=== PATIENT | male | born 1935 | race Caucasian/White ===

== ENCOUNTER 2017-01-08 11:26 | Inpatient (IN) | payer MEDICARE, MEDICAID ==
--- NOTE | 2017-01-08 13:04 | XRay Report ---
AP CHEST: HISTORY: chest pain AP view of the chest demonstrates a normal mediastinal and cardiac contour with clear lungs and normal bony and soft tissue structures. IMPRESSION: Unremarkable AP chest.
[2017-01-08 13:09] LABS: Basophils % (Auto) 1.2 % (0.0-1.8); Hemoglobin 14.2 gm/dl (11.8-15.2); Mean Corpuscular HGB Conc 34 % (32-34); Mean Corpuscular Hemoglobin 30 pg (28-32); Mean Corpuscular Volume 89 fl (84-94); Platelet Count 148 K/mm3 (140-440); Red Blood Count 4.72 M/mm3 (3.65-5.03); Red Cell Distribution Width 13.8 % (13.2-15.2); White Blood Count 6.1 K/mm3 (4.5-11.0)
--- NOTE | 2017-01-08 13:11 | Emergency Department Report ---
HPI - General Chief Complaint: Chest Pain Time Seen by Provider: 01/08/17 12:24 - HPI HPI: This is a 81-year-old male presents to the emergency department from [place] via EMS with complaint of some midsternal left-sided chest pain has been going on for the past to 3 days. He also complains of some constipation with hard stool. The patient says that he does not have any air-conditioning and has room will get up to about 95 and temperature. He also complains of some decreased oral intake due to a decreased appetite. He denies any significant medical history. He has not taken anything received anything for his symptoms prior to presentation. He does not have a primary care physician. He denies any tobacco or illicit drug use or abuse. ED Past Medical Hx - Past Medical History Previous Medical History?: No - Surgical History Past Surgical History?: No - Social History Smoking Status: Never Smoker ED Review of Systems ROS: Stated complaint: CHEST PAIN/CONSTIPATION/BLOOD IN STOOL Other details as noted in HPI Comment: All other systems reviewed and negative Constitutional: denies: chills, fever Eyes: denies: eye pain, eye discharge, vision change ENT: denies: ear pain, throat pain Respiratory: denies: cough, shortness of breath, wheezing Cardiovascular: chest pain. denies: palpitations Gastrointestinal: constipation. denies: abdominal pain Genitourinary: denies: urgency, dysuria Musculoskeletal: denies: back pain, joint swelling, arthralgia Skin: denies: rash, lesions Neurological: denies: headache, weakness, paresthesias Physical Exam - Physical Exam Vital Signs: Vital Signs 01/08/17 12:00 Pulse Rate 63 Respiratory 16 Rate Blood Pressure 134/68 O2 Sat by Pulse 100 Oximetry Physical Exam: GENERAL: The patient is well-developed well-nourished but disheveled appearance. ENT: Normocephalic. Atraumatic. Patient has moist mucous membranes. EYES: Extraocular motions are intact. Pupils equal reactive to light bilaterally. No nystagmus. NECK: Supple. Trachea is mid line. CHEST/LUNGS: Clear to auscultation. There is no respiratory distress noted. Chest pain is not reducible to palpation of the chest wall. HEART/CARDIOVASCULAR: Regular rhythm. Regular rate. There is no gallop rub or murmur. ABDOMEN: Abdomen is soft, nontender. Patient has normal bowel sounds. There is no abdominal distention. SKIN: Skin is warm and dry. NEURO: The patient is awake, alert, and oriented. The patient is cooperative. The patient has no sensory or motor deficits. The patient has normal speech. MUSCULOSKELETAL: There is no tenderness or deformity. There is no limitation range of motion. There is no evidence of acute injury. ED Course Vital Signs 01/08/17 12:00 Pulse Rate 63 Respiratory 16 Rate Blood Pressure 134/68 O2 Sat by Pulse 100 Oximetry ED Medical Decision Making - Lab Data Result diagrams: 01/08/17 12:50 01/08/17 12:50 - EKG Data -: EKG Interpreted by Me EKG shows normal: sinus rhythm, axis (LAD), intervals, QRS complexes, ST-T waves (T-wave inversions to the inferior and lateral leads) Rate: normal - EKG Data When compared to previous EKG there are: previous EKG unavailable Interpretation: other (sinus rhythm, left axis deviation, T-wave inversions inferior and lateral leads) 01/08/17 15:40 Repeat EKG was also read by myself and shows a sinus rhythm, borderline left axis deviation, Q waves to the septal leads and flattening of the T waves - Radiology Data Radiology results: image reviewed interpreted by me: Chest x-ray does not show any pleural effusion, obvious signs of pneumonia or any pneumothorax. No acute process noted. - Medical Decision Making 81-year-old male presents to the emergency department with some chest pain and concern for constipation. EKG does not show any signs of ST elevation NE. Negative d-dimer. First 2 troponins are negative. However the patient continues to have some chest discomfort and has not had a full cardiac workup. He will be admitted to the hospital for further evaluation and treatment has been accepted for admission by the hospitalist, Dr. Navarro. - Differential Diagnosis NE, PE, Costochondritis, Pneumonia Critical Care Time: No Critical care attestation.: If time is entered above; I have spent that time in minutes in the direct care of this critically ill patient, excluding procedure time. ED Disposition Clinical Impression: Chest pain, rule out acute myocardial infarction Chest pain Qualifiers: Chest pain type: unspecified Qualified Code(s): R07.9 - Chest pain, unspecified Constipation Qualifiers: Constipation type: unspecified constipation type Qualified Code(s): K59.00 - Constipation, unspecified Disposition: DC-09 OP ADMIT IP TO THIS HOSP Is pt being admited?: Yes Does the pt Need Aspirin: Yes Condition: Stable Time of Disposition: 16:08
[2017-01-08 13:22] LABS: Alanine Aminotransferase 6 units/L (7-56); Albumin 3.5 g/dL (3.9-5); Albumin/Globulin Ratio 1.3 %; Alkaline Phosphatase 49 units/L (35-129); Anion Gap 16 mmol/L; BUN/Creatinine Ratio 16.25; Blood Urea Nitrogen 13 mg/dL (9-20); Calcium 8.3 mg/dL (8.4-10.2); Carbon Dioxide 26 mmol/L (22-30); Chloride 101.9 mmol/L (98-107); Glucose 80 mg/dL (75-100); Potassium 3.6 mmol/L (3.6-5.0); Sodium 140 mmol/L (137-145); Total Protein 6.1 g/dL (6.3-8.2)
[2017-01-08 13:24] LABS: Urine Drugs of Abuse Note Disclamer
[2017-01-08 13:43] LABS: Bacteria,Urine 2+ /HPF (Negative); Bilirubin,Urine NEG (Negative); Blood,Urine MOD (Negative); Ketones,Urine NEG (Negative); Leukocyte Esterase,Urine MOD (Negative); Mucus,Urine FEW /HPF; Nitrite,Urine POS (Negative); Protein,Urine <15 mg/dL mg/dL (Negative); Urobilinogen,Urine < 2.0 mg/dL (<2.0)
--- NOTE | 2017-01-08 14:34 | Admit Criteria Form ---
Admission Criteria Documentation: CARDIOLOGY GRG Clinical Indications for Admission to Inpatient Care ([place]/check or initial the applicable condition/criteria) Hospital admission is needed for appropriate care of the patient because of ANY ONE of the following: [ ] I. Hemodynamic instability as indicated by ALL of the following (1)(2)(3) (4)(5)(6)(7)(8)(9)(10) [ ]a) Vital sign abnormality not readily corrected by appropriate treatment with 12-24 hours for ANY ONE: [ ]i) Hypotension that persists despite appropriate treatment (eg, volume repletion) [ ]ii) Tachycardiathat persists despite appropriate tx ( e.g., analgesia, fluids, sedation as indicated [ ]iii) Orthostatic vital sign changes that persists despite appropriate treatment (eg, volume repletion) [ ]b) Vital sign abnormailty that is severe indicated by ANY ONE of the following: [ ]i) Inadequate perfusion indicated by ANY ONE of the following: [ ] 1) Lactic acidosis (> 2 mmol/L) [ ] 2) New abnormal capillary refill (> 3 seconds) [ ] 3) Reduced urine output [ ] 4) New altered mental status [ ] 5) Myocardial Ischemia [ ] 6) Other metabolic acidosis (arterial pH <7.35 ) not otherwise explained. [ ]ii) Mean arterial pressure[A] less than 60 mm Hg [ ]iii) Mean arterial pressure[A] less than 70 mm Hg after 30 minutes of appropriate treatment (eg, fluid resuscitation) [ ]iv) Sustained heart rate greater than 120 beats per minute in adult or child 6 years or older[B] [ ]v) IV inotropic or vasopressor medication required to maintain adequate blood pressure or perfusion [ ] II. Severe heart failure as indicated by ANY ONE of the following(17)(18) [ ]a) Respiratory distress [ ]b) Hypotension [ ]c) Debilitating anasarca refractory to therapy (eg, tissue breakdown with infection)[C](19) [ ]d) Cardiac arrhythmias of immediate concern [ ]e) Myocardial ischemia [ ] III. Cardiac arrhythmias or findings of immediate concern indicated by ANY ONE of the following (21)(22): [ ] a) Heart rhythms that are inherently dangerous or unstable indicated by ANY ONE of the following (23)(24)(25): [ ] i) Resuscitated ventricular fibrillation or cardiac arrest [ ] ii) Ventricular escape rhythm [ ] iii) Sustained ventricular tachycardia (30 seconds or more of ventricular rhythm at greater than 100 beats per minute) [ ] iv) Nonsustained ventricular tachycardia and ANY ONE of the following: [ ] 1) Suspected cardiac ischemia as cause or consequence of ventricular tachycardia [ ] 2) Acute myocarditis [ ] b) Unstable cardiac conduction defects indicated by ANY ONE of the following(25)(26)(27) [ ] i) Type II second-degree atrioventricular block [ ]ii) Third-degree atrioventricular block [ ]iii) New-onset left bundle branch block with suspected myocardial ischemia [ ]c) Any heart rhythm and ANY ONE of the following (23)(24)(28)(29) (30) [ ] i) Continuous long-term ECG monitoring needed (e.g., initiation of drug requiring monitoring for more than 24 hours) [ ] ii) Patient has automatic implanted cardioverter defibrillator that is repeatedly firing, malfunctioning, or in need of immediate adjustment of settings beyond the scope of ambulatory or observation care [ ]d) Heart rhythms of concern due to ANY ONE of the following: [ ] i) Hypotension [ ] ii) Respiratory distress [ ] iii) Association with other significant symptoms (e.g., bradycardia with syncope or ongoing dizziness, supraventricular tachycardia with chest pain (28)(29)(31) [ ] IV. Monitoring for cardiac contusion beyond the scope of observation care needed [A](32)(33)(34) [ ] V. Surgical or device complication (e.g., valve replacement complication , ICD disfunction or pacemaker dysfunction) (49)(50)(51)(52)(53)(54) [ ] . Inpatient palliative care needed. [F](51)(52) Also use Inpatient Palliative Care Criteria [ ] VII. Nonbacterial thrombotic (marantic) endocarditis(43)(44)(55)(56)(57) [ X] VIII. Cardiology condition, symptom, or finding for which emergency and observation care has failed or are not considered appropriate. [ ] IX. Acute valvular disease requiring inpatient as indicated by ANY ONE of the following (40)(41) [ ]a) Acute valvular regurgitation (42) [ ]b) Noninfectious valvulitis (43)(44) [ ]c) Obstructive valve thrombosis (45)(46) [ ]d) Paravalvular leak(47)(48) [ ]e) Other significant valvular disorder remaining after emergency or observation level of care (as appropriate) [ ]X. Pericardial disease requiring inpatient treatment as indicated by ANY ONE of the following (35)(36)(37)(38) [ ]a) Suspected tamponade [ ]b) Hemopericardium [ ]c) Other significant pericardial disorder remaining after emergency or observation level of care (as appropriate)(39) [ ] XI. Cardiac ischemia beyond scope of emergency and observation care. [ ] XII. Cyanotic heart disease requiring inpatient care as indicated by 1 or more of the following(58)(59)(60): [ ]a) Acute onset of hypoxemia [ ]b) Exacerbation [ ] XIII. Hypertension requiring inpatient treatment as indicated by ANYONE of the following(11)(12)(13)(14): [ ]a) Severe hypertension (SBP greater than 180 mm Hg or DBP greater than 110 mm Hg, or greater than the 95th percentile for age, gender, and height in pediatric patients) that cannot be controlled (eg, to SBP less than 160 mm Hg and DBP less than 100 mm Hg) by emergency department or observation care treatment(15) [ ]b) Acute end organ damage secondary to hypertension (SBP greater than 140 mm Hg or DBP greater than 90 mm Hg) as indicated by ANYONE of the following: [ ] i) Hypertensive encephalopathy (eg, Altered mental status)(16) [ ] ii) Cerebral infarction [ ] iii) Intracranial hemorrhage [ ] iv) Myocardial ischemia or infarction [ ] v) Heart failure (eg, pulmonary edema) [ ] vi) Aortic dissection [ ] vii) Increased creatinine (new) with reduction of more than 50% in estimated glomerular filtration rate from baseline [ ] viii) Papilledema [ ] ix) Retinal hemorrhage [ ] x) Microangiopathic hemolytic anemia [ ] xi) Seizure [ ] xii) Other significant finding secondary to hypertension [ ] XIV. Complications of transplanted heart indicated by ANY ONE of the following(61): [ ]a) Acute graft rejection requiring inpatient management (eg, intravenous imunosuppression)(62)(63) [ ]b) Acute graft heart failure indicated by ANY ONE of the following(64): [ ] i) Hemodynamic instability [ ] ii) Cardiac arrhythmias of immediate concern [ ] iii) Pulmonary edema that is very severe (eg, mechanical ventilation needed, imminent or likely, need for 100% oxygen to keep oxygen saturation above 90%) [ ] iv) Pulmonary edema that is persistent as indicated by ALL of the following: [ ] 1) New need for oxygen therapy to keep oxygen saturation above 90 % (or increased FiO2 need from baseline) [ ] 2) Has not improved sufficiently with emergency department or observation care IV diuretics or other heart failure treatments[E]. [ ] iv) Altered mental status that is severe or persistent [ ] iv) Increased creatinine (new on laboratory test) with reduction of more than 50% in estimated glomerular filtration rate from baseline [ ] iv) Progressively (ongoing) rising creatinine (known from past laboratory test) with reduction of more than 25% in estimated glomerular filtration rate from baseline [ ] iv) Acute renal failure [ ] iv) Acute peripheral ischemia (eg, examination shows pulseless, cool, mottled, or cyanotic extremity) [ ] iv) Pulmonary artery catheter monitoring needed [ ] iv) Other sign or symptom of heart failure requiring inpatient treatment (ie, too severe or not responsive to outpatient and observation care treatment) [ ]c) Infection requiring inpatient management (eg, Hemodynamic instability, need for intravenous antimicrobial treatment)(66)(67)(68)(69)(70) [ ]d) Cardiac allograft vasculopathy requiring inpatient management (eg evidence of cardiacischemia)(71) [ ]e) Other complication of transplanted heart (eg, stroke, severe pulmonary hypertension, severe valvular dysfunction) requiring inpatient management(72) The original [employer] content created by [employer] has been revised. The portions of the content which have been revised are identified through the use of italic text or in bold, and [facility] has neither reviewed nor approved the modified material. All other unmodified content is copyright [facility]. Please see references footnoted in the original [facility] edition 2017 Admission Criteria Met: Yes
[2017-01-08] MEDS ORDERED: BABY ASPIRIN PO ONE (16:08)
--- NOTE | 2017-01-08 20:12 | History and Physical Report ---
History of Present Illness Date of examination: 01/08/17 Date of admission: 01/08/17 16:09 Chief complaint: Chest pain for 3 days - intermittent in nature. History of present illness: HPI This is a 81-year-old male presents to the emergency department from via EMS with complaint of some midsternal left-sided chest pain which has been going on for the past 3 days. He also complains of some constipation with hard stool. The patient says that he does not have any air-conditioning and has room will get up to about 95 and temperature. He also complains of some decreased oral intake due to a decreased appetite. He denies any significant medical history. He has not taken anything received anything for his symptoms prior to presentation. He does not have a primary care physician. He denies any tobacco or illicit drug use or abuse. Past Medical History Previous Medical History?: No - Surgical History Past Surgical History?: No - Social History Smoking Status: Never Smoker Fam Hx HTN Review of Systems Stated complaint: CHEST PAIN/CONSTIPATION Other details as noted in HPI Comment: All other systems reviewed and negative Constitutional: denies: chills, fever Eyes: denies: eye pain, eye discharge, vision change ENT: denies: ear pain, throat pain Respiratory: denies: cough, shortness of breath, wheezing Cardiovascular: chest pain. denies: palpitations Gastrointestinal: constipation. denies: abdominal pain Genitourinary: denies: urgency, dysuria Musculoskeletal: denies: back pain, joint swelling, arthralgia Skin: denies: rash, lesions Neurological: denies: headache, weakness, paresthesias Medications and Allergies Allergies Allergy/AdvReac Type Severity Reaction Status Date / Time No Known Allergies Allergy Unverified 01/08/17 13:17 Home Medications Medication Instructions Recorded Confirmed Last Taken Type No Known Home Medications [No 01/08/17 01/08/17 Unknown History Reported Home Medications] Active Meds: Active Medications Heparin Sodium (Porcine) (Heparin) 5,000 unit SUB-Q Q8HR ANDREINA Exam - Constitutional Vitals: Temp Pulse Resp BP Pulse Ox 98.9 F 73 12 143/74 99 01/08/17 18:38 01/08/17 18:53 01/08/17 18:38 01/08/17 18:38 01/08/17 16:20 General appearance: Present: no acute distress, well-nourished - EENT Eyes: Present: PERRL ENT: hearing intact, clear oral mucosa - Neck Neck: Present: supple, normal ROM - Respiratory Respiratory effort: normal Respiratory: bilateral: CTA - Cardiovascular Heart Sounds: Present: S1 & S2. Absent: rub, click - Extremities Extremities: pulses symmetrical, No edema Peripheral Pulses: within normal limits - Abdominal General gastrointestinal: Present: soft, non-tender, non-distended, normal bowel sounds Male genitourinary: Present: normal - Integumentary Integumentary: Present: clear, warm, dry - Musculoskeletal Musculoskeletal: gait normal, strength equal bilaterally - Psychiatric Psychiatric: appropriate mood/affect, intact judgment & insight - Neurologic Neurologic: CNII-XII intact, moves all extremities Results - Labs CBC & Chem 7: 01/08/17 12:50 01/08/17 12:50 Labs: Laboratory Last Values WBC 6.1 K/mm3 (4.5-11.0) 01/08/17 12:50 RBC 4.72 M/mm3 (3.65-5.03) 01/08/17 12:50 Hgb 14.2 gm/dl (11.8-15.2) 01/08/17 12:50 Hct 42.0 % (35.5-45.6) 01/08/17 12:50 MCV 89 fl (84-94) 01/08/17 12:50 MCH 30 pg (28-32) 01/08/17 12:50 MCHC 34 % (32-34) 01/08/17 12:50 RDW 13.8 % (13.2-15.2) 01/08/17 12:50 Plt Count 148 K/mm3 (140-440) 01/08/17 12:50 Lymph % (Auto) 29.0 % (13.4-35.0) 01/08/17 12:50 [place] % (Auto) 6.2 % (0.0-7.3) 01/08/17 12:50 Eos % (Auto) 2.0 % (0.0-4.3) 01/08/17 12:50 Baso % (Auto) 1.2 % (0.0-1.8) 01/08/17 12:50 Lymph # 1.8 K/mm3 (1.2-5.4) 01/08/17 12:50 [place] # 0.4 K/mm3 (0.0-0.8) 01/08/17 12:50 Eos # 0.1 K/mm3 (0.0-0.4) 01/08/17 12:50 Baso # 0.1 K/mm3 (0.0-0.1) 01/08/17 12:50 Seg Neutrophils % 61.6 % (40.0-70.0) 01/08/17 12:50 Seg Neutrophils # 3.8 K/mm3 (1.8-7.7) 01/08/17 12:50 D-Dimer 152.15 ng/mlDDU (0-234) 01/08/17 12:50 Sodium 140 mmol/L (137-145) 01/08/17 12:50 Potassium 3.6 mmol/L (3.6-5.0) 01/08/17 12:50 Chloride 101.9 mmol/L (98-107) 01/08/17 12:50 Carbon Dioxide 26 mmol/L (22-30) 01/08/17 12:50 Anion Gap 16 mmol/L 01/08/17 12:50 BUN 13 mg/dL (9-20) 01/08/17 12:50 Creatinine 0.8 mg/dL (0.8-1.5) 01/08/17 12:50 Estimated GFR > 60 ml/min 01/08/17 12:50 BUN/Creatinine Ratio 16.25 % 01/08/17 12:50 Glucose 80 mg/dL (75-100) 01/08/17 12:50 Calcium 8.3 mg/dL (8.4-10.2) L 01/08/17 12:50 Total Bilirubin 1.50 mg/dL (0.1-1.2) H 01/08/17 12:50 AST 8 units/L (5-40) 01/08/17 12:50 ALT 6 units/L (7-56) L 01/08/17 12:50 Alkaline Phosphatase 49 units/L (35-129) 01/08/17 12:50 Troponin T < 0.010 ng/mL (0.00-0.029) 01/08/17 14:56 Total Protein 6.1 g/dL (6.3-8.2) L 01/08/17 12:50 Albumin 3.5 g/dL (3.9-5) L 01/08/17 12:50 Albumin/Globulin Ratio 1.3 % 01/08/17 12:50 Urine Color Yellow (Yellow) 01/08/17 13:20 Urine Turbidity Clear (Clear) 01/08/17 13:20 Urine pH 7.0 (5.0-7.0) 01/08/17 13:20 Ur Specific [place] 1.010 (1.003-1.030) 01/08/17 13:20 Urine Protein <15 mg/dl mg/dL (Negative) 01/08/17 13:20 Urine Glucose (UA) Neg mg/dL (Negative) 01/08/17 13:20 Urine Ketones Neg mg/dL (Negative) 01/08/17 13:20 Urine Blood Mod (Negative) 01/08/17 13:20 Urine Nitrite Pos (Negative) 01/08/17 13:20 Urine Bilirubin Neg (Negative) 01/08/17 13:20 Urine Urobilinogen < 2.0 mg/dL (<2.0) 01/08/17 13:20 Ur Leukocyte Esterase Mod (Negative) 01/08/17 13:20 Urine WBC (Auto) 12.0 /HPF (0.0-6.0) H 01/08/17 13:20 Urine RBC (Auto) 13.0 /HPF (0.0-6.0) 01/08/17 13:20 Urine Bacteria (Auto) 2+ /HPF (Negative) 01/08/17 13:20 Urine Mucus Few /HPF 01/08/17 13:20 Urine Opiates Screen Presumptive negative 01/08/17 13:11 Urine Methadone Screen Presumptive negative 01/08/17 13:11 Ur Barbiturates Screen Presumptive negative 01/08/17 13:11 Ur Phencyclidine Scrn Presumptive negative 01/08/17 13:11 Ur Amphetamines Screen Presumptive negative 01/08/17 13:11 U Benzodiazepines Scrn Presumptive negative 01/08/17 13:11 Urine Cocaine Screen Presumptive negative 01/08/17 13:11 U Marijuana (THC) Screen Presumptive negative 01/08/17 13:11 Drugs of Abuse Note Disclamer 01/08/17 13:11 Short CBC 01/08/17 Range/Units 12:50 WBC 6.1 (4.5-11.0) K/mm3 Hgb 14.2 (11.8-15.2) gm/dl Hct 42.0 (35.5-45.6) % Plt Count 148 (140-440) K/mm3 BMP 01/08/17 12:50 Sodium 140 Potassium 3.6 Chloride 101.9 Carbon Dioxide 26 BUN 13 Creatinine 0.8 Glucose 80 Calcium 8.3 L Cardiac Enzymes 01/08/17 01/08/17 01/08/17 Range/Units 12:50 14:56 19:28 Total Creatine Kinase (55-170) units/L CK-MB (CK-2) (0.0-4.0) ng/mL Troponin T < 0.010 < 0.010 < 0.010 (0.00-0.029) ng/mL 01/08/17 Range/Units 21:14 Total Creatine Kinase 44 L (55-170) units/L CK-MB (CK-2) 1.9 (0.0-4.0) ng/mL Troponin T < 0.010 (0.00-0.029) ng/mL Liver Function 01/08/17 Range/Units 12:50 Total Bilirubin 1.50 H (0.1-1.2) mg/dL AST 8 (5-40) units/L ALT 6 L (7-56) units/L Alkaline Phosphatase 49 (35-129) units/L Albumin 3.5 L (3.9-5) g/dL Urine 01/08/17 Range/Units 13:20 Urine Color Yellow (Yellow) Urine pH 7.0 (5.0-7.0) Ur Specific [place] 1.010 (1.003-1.030) Urine Protein <15 mg/dl (Negative) mg/dL Urine Glucose (UA) Neg (Negative) mg/dL - Imaging and Cardiology EKG: report reviewed (NSR) Chest x-ray: report reviewed (NAF) Abdominal x-ray: report reviewed (NAF) Assessment and Plan Advance Directives: Yes (FC) VTE prophylaxis?: Chemical Plan of care discussed with patient/family: Yes - Patient Problems (1) Chest pain, rule out acute myocardial infarction Current Visit: Yes Status: Acute Plan to address problem: Serial CE's and Lexiscan in AM (2) DVT prophylaxis Current Visit: Yes Status: Acute Plan to address problem: On LOvenox 40 mg sq qd
[2017-01-08 21:53] LABS: Creatine Kinase MB 1.9 ng/mL (0.0-4.0)
[2017-01-08] MEDS: HEPARIN SUB-Q SCH (21:54)
[2017-01-08 21:57] LABS: Creatine Kinase 44 units/L (55-170)
[2017-01-08] MEDS: ROCEPHIN/NS 2 GM/100 ML 2 GM/100 ML BAG IV SCH (21:57)
[2017-01-09] MEDS: HEPARIN SUB-Q SCH (05:41)
[2017-01-09] MEDS ORDERED: TYLENOL PO PRN (05:52)
[2017-01-09] MEDS ORDERED: NACL 0.9% 1000 ML 1,000 ML IV SCH (08:00)
--- NOTE | 2017-01-09 08:00 | Progress Note ---
Assessment and Plan Assessment and plan: Chest Pain On continues cardiac monitoring telemetry floor. EKG normal sinus rate [address] elevation or T-wave inversion. We will get another EKG ordered for a changes that have taken since the first one obtained Negative cardiac enzyme X3 Start on aspirin Nitroglycerin when necessary Morphine ordered for pain Stress test ordered but was cancelled, because the patient refused the exam. Patient changed is mind and we rescheduled for tomorrow. Urinary tract infection Started on empiric treatment antibiotic Rocephin IV fluid hydration Constipation Started on laxatives Closely monitor Electrolyses DVT prophylaxis On LOvenox 40 mg sq qd History Interval history: Patient alert and oriented to person, place and time but he seems paranoid. Hospitalist Physical - Constitutional Vitals: Temp Pulse Resp BP Pulse Ox 98.3 F 93 H 18 139/67 99 01/09/17 04:00 01/09/17 04:00 01/09/17 04:00 01/09/17 04:00 01/09/17 04:00 General appearance: Present: no acute distress, well-nourished - EENT Eyes: Present: PERRL ENT: hearing intact - Neck Neck: Present: supple - Respiratory Respiratory effort: normal Respiratory: bilateral: CTA - Cardiovascular Heart rate: 60 Rhythm: regular Heart Sounds: Present: S1 & S2 - Extremities Extremities: no ischemia Peripheral Pulses: within normal limits - Abdominal General gastrointestinal: soft, non-tender - Integumentary Integumentary: Present: clear, warm, dry - Psychiatric Psychiatric: appropriate mood/affect - Neurologic Neurologic: CNII-XII intact - Allied Health Allied health notes reviewed: nursing Results - Labs CBC & Chem 7: 01/08/17 12:50 01/08/17 12:50 Labs: Laboratory Last Values WBC 6.1 K/mm3 (4.5-11.0) 01/08/17 12:50 RBC 4.72 M/mm3 (3.65-5.03) 01/08/17 12:50 Hgb 14.2 gm/dl (11.8-15.2) 01/08/17 12:50 Hct 42.0 % (35.5-45.6) 01/08/17 12:50 MCV 89 fl (84-94) 01/08/17 12:50 MCH 30 pg (28-32) 01/08/17 12:50 MCHC 34 % (32-34) 01/08/17 12:50 RDW 13.8 % (13.2-15.2) 01/08/17 12:50 Plt Count 148 K/mm3 (140-440) 01/08/17 12:50 Lymph % (Auto) 29.0 % (13.4-35.0) 01/08/17 12:50 Brantley % (Auto) 6.2 % (0.0-7.3) 01/08/17 12:50 Eos % (Auto) 2.0 % (0.0-4.3) 01/08/17 12:50 Baso % (Auto) 1.2 % (0.0-1.8) 01/08/17 12:50 Lymph # 1.8 K/mm3 (1.2-5.4) 01/08/17 12:50 Brantley # 0.4 K/mm3 (0.0-0.8) 01/08/17 12:50 Eos # 0.1 K/mm3 (0.0-0.4) 01/08/17 12:50 Baso # 0.1 K/mm3 (0.0-0.1) 01/08/17 12:50 Seg Neutrophils % 61.6 % (40.0-70.0) 01/08/17 12:50 Seg Neutrophils # 3.8 K/mm3 (1.8-7.7) 01/08/17 12:50 D-Dimer 152.15 ng/mlDDU (0-234) 01/08/17 12:50 Sodium 140 mmol/L (137-145) 01/08/17 12:50 Potassium 3.6 mmol/L (3.6-5.0) 01/08/17 12:50 Chloride 101.9 mmol/L (98-107) 01/08/17 12:50 Carbon Dioxide 26 mmol/L (22-30) 01/08/17 12:50 Anion Gap 16 mmol/L 01/08/17 12:50 BUN 13 mg/dL (9-20) 01/08/17 12:50 Creatinine 0.8 mg/dL (0.8-1.5) 01/08/17 12:50 Estimated GFR > 60 ml/min 01/08/17 12:50 BUN/Creatinine Ratio 16.25 % 01/08/17 12:50 Glucose 80 mg/dL (75-100) 01/08/17 12:50 Calcium 8.3 mg/dL (8.4-10.2) L 01/08/17 12:50 Total Bilirubin 1.50 mg/dL (0.1-1.2) H 01/08/17 12:50 AST 8 units/L (5-40) 01/08/17 12:50 ALT 6 units/L (7-56) L 01/08/17 12:50 Alkaline Phosphatase 49 units/L (35-129) 01/08/17 12:50 Total Creatine Kinase 44 units/L (55-170) L 01/08/17 21:14 CK-MB (CK-2) 1.9 ng/mL (0.0-4.0) 01/08/17 21:14 CK-MB (CK-2) Rel Index 4.3 (0-4) H 01/08/17 21:14 Troponin T < 0.010 ng/mL (0.00-0.029) 01/08/17 21:14 Total Protein 6.1 g/dL (6.3-8.2) L 01/08/17 12:50 Albumin 3.5 g/dL (3.9-5) L 01/08/17 12:50 Albumin/Globulin Ratio 1.3 % 01/08/17 12:50 Urine Color Yellow (Yellow) 01/08/17 13:20 Urine Turbidity Clear (Clear) 01/08/17 13:20 Urine pH 7.0 (5.0-7.0) 01/08/17 13:20 Ur Specific Garden 1.010 (1.003-1.030) 01/08/17 13:20 Urine Protein <15 mg/dl mg/dL (Negative) 01/08/17 13:20 Urine Glucose (UA) Neg mg/dL (Negative) 01/08/17 13:20 Urine Ketones Neg mg/dL (Negative) 01/08/17 13:20 Urine Blood Mod (Negative) 01/08/17 13:20 Urine Nitrite Pos (Negative) 01/08/17 13:20 Urine Bilirubin Neg (Negative) 01/08/17 13:20 Urine Urobilinogen < 2.0 mg/dL (<2.0) 01/08/17 13:20 Ur Leukocyte Esterase Mod (Negative) 01/08/17 13:20 Urine WBC (Auto) 12.0 /HPF (0.0-6.0) H 01/08/17 13:20 Urine RBC (Auto) 13.0 /HPF (0.0-6.0) 01/08/17 13:20 Urine Bacteria (Auto) 2+ /HPF (Negative) 01/08/17 13:20 Urine Mucus Few /HPF 01/08/17 13:20 Urine Opiates Screen Presumptive negative 01/08/17 13:11 Urine Methadone Screen Presumptive negative 01/08/17 13:11 Ur Barbiturates Screen Presumptive negative 01/08/17 13:11 Ur Phencyclidine Scrn Presumptive negative 01/08/17 13:11 Ur Amphetamines Screen Presumptive negative 01/08/17 13:11 U Benzodiazepines Scrn Presumptive negative 01/08/17 13:11 Urine Cocaine Screen Presumptive negative 01/08/17 13:11 U Marijuana (THC) Screen Presumptive negative 01/08/17 13:11 Drugs of Abuse Note Disclamer 01/08/17 13:11
--- NOTE | 2017-01-09 08:49 | XRay Report ---
ABDOMEN RADIOGRAPHS INDICATION: Constipation. COMPARISON: None similar. FINDINGS: Frontal abdominal supine and upright radiographs demonstrate a nonobstructive bowel gas pattern. No significant stool burden with mild ascending colon stool noted. Approximately 7 mm left renal calculus possible. Small right hemipelvis phlebolith. No pneumatosis or pneumoperitoneum. Clear visualized lung bases. EKG leads. Demineralized bones with mild spinal degenerative changes. CONCLUSION: No radiographic evidence of bowel obstruction or constipation with left renal calculus possible, as described. Please correlate. Thank you for the opportunity to participate in this patient's care.
[2017-01-09] MEDS: COLACE PO SCH ×2 (10:00→22:40)
[2017-01-09] MEDS ORDERED: NITROSTAT SL PRN (14:06)
[2017-01-09 15:18] LABS: Creatine Kinase MB 1.8 ng/mL (0.0-4.0)
[2017-01-09 15:19] LABS: Creatine Kinase 44 units/L (55-170)
--- NOTE | 2017-01-09 19:22 | Event Note ---
Date: 01/09/17 Patient seen and evaluated. Agree with SANITARY PLUMBER's note.
[2017-01-09] MEDS ORDERED: LOVENOX SUB-Q SCH (22:00)
[2017-01-09] MEDS: ROCEPHIN/NS 2 GM/100 ML 2 GM/100 ML BAG IV SCH (22:40)
[2017-01-10] MEDS: COLACE PO SCH (11:24)
--- NOTE | 2017-01-10 11:30 | Discharge Summary ---
Providers - Providers Date of Admission: 01/08/17 16:09 Date of discharge: 01/10/17 Attending physician: YOAV WHITE Primary care physician: DEBLOCKER Hospitalization Reason for admission: chest pain, constipation Condition: Stable Pertinent studies: Chest x-ray Abdomen x-ray Hospital course: Patient is a 81 years old man presented to the hospital complaining of ubsternal chest pain and constipation. EKG showed no acute ischemic changes and cardiac enzymes have been negative. Further evaluation with stress test was planned was planned, but he refused 2 days in a row despite extensive counseling. Diagnosed also with UTI and started on antibiotics, as well as, on bowel regimen. Discharged back to his half-way on stable condition. Discharge diagnosis: 1. Atypical chest pain - possible GERD 2. UTI 3. Constipation Disposition: DC-01 TO HOME OR SELFCARE Time spent for discharge: 35 min Core Measure Documentation - Palliative Care Palliative Care/ Comfort Measures: Not Applicable - Core Measures Any of the following diagnoses?: none Exam - Physical Exam Narrative exam: Patient seen and examined: - Constitutional Vitals: Temp Pulse Resp BP Pulse Ox 97.8 F 66 20 159/74 98 01/10/17 07:00 01/10/17 07:00 01/10/17 07:00 01/10/17 07:00 01/10/17 07:00 General appearance: Present: no acute distress - Neck Neck: Present: supple, normal ROM. Absent: masses or JVD - Respiratory Respiratory effort: normal Respiratory: bilateral: CTA, negative: rhonchi, wheezing - Cardiovascular Rhythm: regular Heart Sounds: Present: S1 & S2. Absent: systolic murmur - Extremities Extremities: no ischemia - Abdominal General gastrointestinal: Present: soft, non-tender, non-distended, normal bowel sounds - Neurologic Neurologic: no focal deficits Plan Activity: advance as tolerated, fall precautions Diet: low cholesterol, low salt Additional Instructions: Discharged to half-way Follow up with: PRIMARY CARE, [Primary Care Provider] - 3-5 Days Prescriptions: Nitrofurantoin Macrocrysta(Nf) [Macrodantin CAP] 100 mg PO QID #12 capsule
[2017-01-10 14:59] VITALS: BP 151/73
--- NOTE | 2017-01-14 09:48 | Query- Chest Pain ---
Honey Pepper Don Date: 01/14/17 Slurry Tank Tender/CDS:____Rogerspatel / [place] Phone#:[phone] Exercise your independent professional judgment when responding to query. Questions asked do not imply a particular answer is desired or expected. We greatly appreciate your clarification on this issue. Clinical Documentation States: 81 year old male was admitted on 01/08/17. The H&P (Dr. Navarro) states " Chief complaint: Chest pain for 3 days - intermittent in nature. Assessment and Plan: Patient Problems (1) Chest pain, rule out acute myocardial infarction " The Cardiology Department note (Deon 01/10/17) states " The patient refused the stress test for a second time this morning. " Please document the etiology of Chest Pain: [ ] Myocardial Infarction [ ] Pneumonia [ ] Mediastinitis [ ] Costochondritis [ ] Pulmonary Embolism [ ] Coronary Artery Disease [ ] GERD [ ] Other: [ ] Comment/Explanation:__refused stress test Present on Admission: [ ] Yes (Y) [x ] Clinically undeterminable (W) [ ] No(N) Please document response in your Progress Notes and/or Discharge Summary and indicate if the condition was present on admission. AMBER
== END 2017-01-10 17:53 | disposition home or self-care (01) | DRG 392 ==
LOC: ED 11:26 → 4A 16:09
PROVIDERS: ADMIT Internal Medicine; ATTEND Internal Medicine
DX: K21.9 Gastro-esophageal reflux disease without esophagitis (principal); N39.0 Urinary tract infection, site not specified; K59.00 Constipation, unspecified; Z82.49 Family history of ischemic heart disease and other diseases of the circulatory system
CPT/HCPCS: 36415; 71010; 74020; 80053; 80307; 81001; 82550; 82553; 84484; 85025; 85379; 93005; 93010; 96365; 96372; J0696; J1644; J1650; J7030

== ENCOUNTER 2018-09-13 19:16 | Emergency (ER) | payer MEDICARE ==
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
[2018-09-14] MEDS ORDERED: NORCO 5/325 PO ONE (03:20)
[2018-09-14] MEDS ORDERED: FLEXERIL PO ONE (03:20)
[2018-09-14 09:12] VITALS: BP 154/73
== END 2018-09-14 09:12 | disposition home or self-care (01) ==
LOC: ED 19:16
DX: S06.330A Contusion and laceration of cerebrum, unspecified, without loss of consciousness, initial encounter (principal); S20.212A Contusion of left front wall of thorax, initial encounter; F32.9 Major depressive disorder, single episode, unspecified; K59.00 Constipation, unspecified; I25.2 Old myocardial infarction; Y04.0XXA Assault by unarmed brawl or fight, initial encounter; Y93.89 Activity, other specified; Y92.89 Other specified places as the place of occurrence of the external cause; Y99.8 Other external cause status
CPT/HCPCS: 70450; 71250